=== PATIENT | female | born 1975 | race Caucasian/White ===

== ENCOUNTER 2017-01-06 05:20 | Inpatient (IN) | payer OTHER ==
[~2017-01-06] VITALS: Ht 165.1 cm; Wt 80.3 kg
[~2017-01-06 05:20] MED LIST: CITA10TA14 PO
[2017-01-06] MEDS ORDERED: Lidocaine 2% 5 mL Topical Jelly MUC_MEMBRM ONE (06:00)
[2017-01-06] MEDS ORDERED: Hemorrhage Kit, Post Partum XX ONE ×2 (06:00→10:45)
[2017-01-06] MEDS ORDERED: Carboprost 250 mCg/mL Inj IM PRN ×2 (06:00→10:45)
[2017-01-06] MEDS ORDERED: CeFAZolin Inj 2 GM in IV Premix 1 EACH IV SCH (06:00)
[2017-01-06] MEDS ORDERED: Oxytocin 10 Unit/mL Inj IM PRN ×2 (06:00→10:45)
[2017-01-06] MEDS ORDERED: Methylergonovine 0.2 mg/mL Inj IM PRN ×2 (06:00→10:45)
[2017-01-06] MEDS: Sodium Citrate-Citric Acid 30 mL Solution PO SCH (06:00)
--- NOTE | 2017-01-06 06:50 | PCM.HPOB ---
Subjective Date of Service: Jan 06, 2017 Referring Provider: Admitting Physician: Devon Elder MD Primary Care Physician: Nopcp Attending Physician: Devon Elder MD Chief Complaint Gestational diabetes Non vertex presentation History of Present History of Present Illness This is a 41-year-old at 39 weeks and 0 days with a RAMONE 01/13/17 confirmed by 8 week ultrasound consistent with LMP 04/08/16 who presents for a scheduled delivery with BTL. This has been complicated by non-vertex presentation, gestational diabetes and AMA. The patient is O+, varicella immune, rubella immune, RPR nonreactive, HBs antibody negative and HIV nonreactive. GBS swab was negative. OB History: (6), Para (5), Living (5) Obstetrical Complications: Gestational Diabetes Past Medical History Obstetrical History: 1 2 3 4 5 Hx Tobacco Use: Yes Smoking Status: Former Smoker (12 pack years) Hx Alcohol Use: No Hx Substance Use: No Past Family History Living Arrangement: with Family Genetic Screening/Counseling Genetic Screening/Counseling: Negative Review of Systems Constitutional: Y: Change of appitite, Fever Eyes: Resports: Blurred Vision Cardiovascular: Reports: Chest Pain, Edema, SOB while laying flat Respiratory: Reports: SOB with Exertion Gastrointestinal: Reports: Abdominal Pain, Epigastric pain, Nausea, Vomiting Genitourinary: Reports: Change in Frequency, Dysuria Musculoskeletal: Reports: Limitation of Function Neurological: Reports: Confusion Allergy Coded Allergies: No Known Allergies (Unverified Allergy, Unknown, 08/20/14) Exam Vital Signs BP 108/57 Pulse 97 Respiration 20 Temp 37.2 Exam heart tracing baseline 130 Category I with moderate variability Constitutional: Well-developed, Well-nourished, Normal habitus HEENT: Atraumatic Lungs: Clear to Auscultation Heart: Normal S1, Normal S2, Murmur (I/ flow murmur) Fundus Firm Abdomen: Gravid Extremities: Warm, No Edema, Tenderness/Swelling Noted Neurological/Psychiatric: Alert, Oriented X3 Neuro: Normal DTRs, No Clonus noted Labs/Diagnostics Maternal Blood Type: O (positive) Group B Strep Results: Negative Previous with GBS: Unknown Rubella: Immune OB Intrapartum Assessment/Plan Problems: (1) Abnormal presentation Status: Acute ICD Code: O32.9XX0 (2) 39 weeks gestation of Plan: - Scheduled delivery for breech presentation - Continue routine preop care. Status: Acute ICD Code: Z3A.39 Evi Patterson DO Jan 06, 2017 06:50
[2017-01-06 06:52] LABS: Mean Corpuscular Hemoglobin 34.1 pg (27.0-35.0); Mean Corpuscular Volume 100.6 fL (81-100)
[2017-01-06] MEDS: Lactated Ringer's 1,000 ML IV SCH ×5 (08:35→20:07)
[2017-01-06] MEDS ORDERED: Sodium Citrate-Citric Acid 15 mL Solution ONE (08:43)
[2017-01-06] MEDS ORDERED: Morphine PF 1 mg/mL 10 mL Inj ONE (09:23)
[2017-01-06] MEDS ORDERED: fentaNYL-PF 50 mCg/mL 2 mL Inj ONE (09:51)
[2017-01-06] MEDS ORDERED: Propofol 10,000 mCg/mL 20 mL Inj ONE (09:51)
[2017-01-06] MEDS ORDERED: Oxytocin 10 Unit/mL Inj ONE (09:51)
[2017-01-06] MEDS ORDERED: Ondansetron 2 mg/mL 2 mL Inj ONE (09:51)
[2017-01-06] MEDS ORDERED: Dexamethasone 4 mg/mL Inj ONE (09:51)
--- NOTE | 2017-01-06 10:01 | PCM.HPANE ---
Patient Data Surgeon Admitting Provider:Devon Elder MD Attending Provider:Devon Elder MD Primary Care Physician:Fide Other Provider:Leeann Torres Anesthesia Reason for Visit Breech Presentation, Gestational Diabetes BREECH PRESENTATION, GESTATIONAL DIABETES Ht/WT & BMI Body Mass Index Allergies Coded Allergies: No Known Allergies (Unverified Allergy, Unknown, 08/20/14) Past Anesthesia History Anesthesia History: Denies:: Abnormal Airway Medications Reported Medications Citalopram Hydrobromide (Celexa)10 Mg [id number] Mg PO DAILY DEPRESSION Ref 0 11/17/14 History History of ENT Problems?: No HEENT History: Denies:: Abnormal Airway Denture Type: None Teeth Condition: Within Normal Limits Hx of Heart Problems?: No Cardiovascular History: Denies:: Cardiac Surgery Hx of Respiratory Problem?: No Respiratory History: Denies:: Asthma Hx Neurologic Problems?: No Hx of GI Problems?: No Hx of Problems?: No Female Hx: Positive for:: Currently Hx Musculoskeletal Problems?: No Hx Surgeries?: Yes Hx Alcohol Use: NoHx Substance Use: No Smoking Status: Former Smoker (12 pack years) Stop/Bang Treated for Sleep Apnea?: No Do You Have a CPAP Machine?: No S-Snoring: Do You Snore Loudly: No T-Tired: feel tired, fatigued: No O-Obsered: Observed not breath: No P-Blood Pressure: treated: No B- Body Mass Index > 35 kg/m2: No A- Age over 50: No N- Neck Large Circumference: No G- Gender Male: No DOYLE Risk Assessment: Low Risk, <3 Yes Risk Assessment Category Category 1A: Patient has history of documented sleep apnea, and HAS NOT received any narcotic, sedative or anesthesia administration during this stay. Category 1B: Patient has history of documented sleep apnea, and HAS received any narcotic , sedative or anesthesia administration during this stay Category 2: Patient has SUSPECTED Obstructive Sleep Apnea, and HAS received any narcotic , sedative or anesthesia administration during this stay. Category 3: Patient has SUSPECTED Obstructive Sleep Apnea and HAS NOT received narcotic, sedative or anesthesia administration during this stay. Category 4: Outpatient in Procedural Areas with known sleep apnea or who screen positive for High Risk via the STOP/BANG questionnaire. Exam Exam General Appearance: Alert, Oriented X3 HEENT/AIRWAY: MP 1 Lungs: Clear to Auscultation Heart: Normal S1, Normal S2, Murmur (I/ flow murmur) Meds/Labs/Diagnostics Admission Meds Current Medications Lactated Ringer's 1,000 ml @ 125 mls/hr Q8H IV Last administered on 01/06/17 08:55; Start 01/06/17 at 06:00; Stop 01/06/17 at 13:59 Cefazolin Sodium/ Dextrose/Premix (Ancef Inj/IV Premix) 50 ml @ 150 mls/hr PREOP IV Last administered on 01/06/17 08:35; Start 01/06/17 at 06:00; Stop at 06:19; Status DC Citric Acid/ Sodium Citrate (Bicitra) 15 ml STK-MED ONCE .ROUTE Last administered on 01/06/17 08:56; Start 01/06/17 at 08:43; Stop 01/06/17 at 08:45 ; Status DC Labs Test 01/06/17 06:15 White Blood Count 10.7th/mm3 (3.8-10.1) Red Blood Count 3.55mil/mm3 (3.90-5.20) Hemoglobin 12.1g/dL (12.0-15.6) Hematocrit 35.7% (35.0-46.0) Mean Corpuscular Volume 100.6fL (81-100) Mean Corpuscular Hemoglobin 34.1pg (27.0-35.0) Mean Corpuscular Hemoglobin Concent 33.9% (32.0-37.0) Red Cell Distribution Width 13.9% (12.3-15.4) Platelet Count 352bil/L (150-400) Plan Impression Patient chart reviewed, patient interviewed and anesthestic plan with risks, benefits, and alternatives discussed, and informed consent obtained. NPO per Anesth. Guidelines: Yes ASA Physical Status: ASA1 Normal Healthy Anesthetic Plan: SAB Bene/Risks/Altern/Consents: Yes HP Complete Prior to Induction: Yes Bradly Dasilva MD Jan 06, 2017 10:01
[2017-01-06] MEDS ORDERED: EPHEDrine Sulfate 50 mg/mL Inj IVPUSH PRN (10:05)
[2017-01-06] MEDS ORDERED: Atropine 0.4 mg/mL Inj IV PRN (10:05)
[2017-01-06] MEDS ORDERED: fentaNYL-PF 50 mCg/mL 2 mL Inj IVPUSH PRN (10:05)
[2017-01-06] MEDS ORDERED: Sodium Chloride LOK Flush 10 mL Syringe IVFLUSH PRN (10:45)
[2017-01-06] MEDS ORDERED: Oxytocin 30 Units/500 mL LR 30 UNITS in IV Premix 1 EACH IV PRN (10:45)
[2017-01-06] MEDS ORDERED: hydrOXYzine Pamoate 25 mg Capsule PO PRN (10:45)
[2017-01-06] MEDS ORDERED: LANOlin HPA 7 Gm Ointment TOPICAL PRN (10:45)
--- NOTE | 2017-01-06 12:04 | OP ---
[address] [address] OPERATIVE REPORT PATIENT: LAKEISHA CENTENO : 1975 MR#: [id number] ADMIT: 01/06/2017 JOB ID: [id number] DATE OF SURGERY: 01/06/2017 PREOPERATIVE DIAGNOSIS(ES): 1. Breech presentation. 2. Thirty-nine weeks. 3. Desires permanent sterilization. 4. Advanced maternal age. POSTOPERATIVE DIAGNOSIS(ES): 1. Breech presentation. 2. Thirty-nine weeks. 3. Desires permanent sterilization. 4. Advanced maternal age. PROCEDURE PERFORMED: Primary low transverse delivery with bilateral tubal ligation using salpingectomy. SURGEON: Devon Elder MD. TRANSMISSION OPERATOR: MD Dr. Bren Tavarez was necessary for this procedure to help with exposure and delivery of . ANESTHESIA: Spinal. ESTIMATED BLOOD LOSS: 600 mL. COMPLICATIONS: None. PATHOLOGY SENT: Left and right fallopian tubes. FINDINGS: At time of surgery a male infant in a cephalic presentation with an weight of 3546 g Apgars of 9 and 9. The left fallopian tube had some filmy adhesions along the fimbriated end to the left ovary. Otherwise normal appearing ovaries, uterus, and fallopian tubes. PROCEDURE: Patient was taken to the operating room, where spinal anesthesia was found be adequate. She was placed in a lithotomy position in a leftward tilt and prepared and draped in the normal sterile fashion. A Pfannenstiel incision was made with a scalpel. This incision was carried down to the underlying fascia with the Bovie cautery. The fascia was nicked in the midline and this incision was extended laterally with the Osuna scissors. The underlying rectus muscle was dissected off with blunt and sharp dissection. The rectus muscles were in the midline and perineum entered bluntly with surgeon's hands. This opening was extended with the surgeon's hands. The lower uterine segment was identified. The bladder flap was created, and the uterus incised in low transverse fashion with the scalpel. was delivered in a breech presentation and standard breech maneuvers were used to deliver the infant without difficulty. The cord was clamped after 1 minute and the infant handed off to the waiting nurses. Cord blood was sent. The placenta was removed manually. The uterus was then exteriorized, cleared of all clots and debris. The uterine incision was repaired in two layers with 0-Vicryl suture. A bilateral tubal ligation was performed using bilateral salpingectomy. The right fallopian tube was identified, followed out to the fimbriated end a defect was made in the mesosalpinx and the right fallopian tube was suture ligated at the cornu and just below the fimbriated end. Any vessels in the mesosalpinx were ligated with 0-chromic suture. The tube was excised and sent to Pathology. In a similar fashion, the left fallopian tube was identified. The Bovie cautery was used at this point to free up some filmy adhesions and again in similar fashion. Defects were made in the mesosalpinx and the fallopian tube was suture ligated at its attachment at the cornu and at the fimbriated end and the underlying vessels were then ligated with 0-chromic and the fallopian tube excised and sent to Pathology. Good hemostasis was assured. The gutters were then irrigated with copious amounts normal saline and the uterus returned to the patient's peritoneal cavity. The uterine incision was inspected a second time and noted to be hemostatic. The fascia was then reapproximated with 0-Vicryl suture in a running fashion. Two sutures were used and anchored at each apices and tied separately in the midline. The subcutaneous layer was closed with 0 plain gut. Skin was closed with 4-0 Monocryl in a subcuticular fashion. Dermabond and Steri-Strips applied. All lap, instrument, and needle counts correct x2 at end of procedure. Patient was taken to her room in good condition. DELFINO
[2017-01-06] MEDS: Acetaminophen IV 1,000 MG in IV Premix 1 EACH IV PRN ×2 (12:22→18:14)
[2017-01-07] MEDS: HYDROcodone-APAP 5-325 mg Tablet PO PRN ×6 (01:08→23:09)
[2017-01-07] MEDS: Lactated Ringer's 1,000 ML IV SCH ×2 (04:23→18:41)
[2017-01-07] MEDS: Sodium Citrate-Citric Acid 30 mL Solution PO SCH (06:00)
[2017-01-07 07:25] LABS: Mean Corpuscular Hemoglobin 34.3 pg (27.0-35.0); Mean Corpuscular Volume 102.6 fL (81-100)
--- NOTE | 2017-01-07 09:14 | PCM.PNOBPP ---
Subjective Date of Service Jan 07, 2017 Post : Primary C[facility]re[facility] Delivery Visit History Postop day 1 Primary delivery Subjective Patient has no complaints. She is feeling ready to leave today and disappointed when informed we retain patients for 48 hours post- delivery. She is breast-feeding well, tolerating oral feedings and ambulating and independently. Lochia: Light Pain Management: PO pain meds Gastrointestinal: Good Appetite, No N/V Postop Activity: Ambulating Independently Group B Strep Results: Negative Rubella: Immune Blood Type: O (positive) Labs Laboratory Tests 01/07/17 06:50: White Blood Count 13.1, Red Blood Count 3.09, Hemoglobin 10.6, Hematocrit 31.7, Mean Corpuscular Volume 102.6, Mean Corpuscular Hemoglobin 34.3, Mean Corpuscular Hemoglobin Concent 33.4, Red Cell Distribution Width 13.7, Platelet Count 343 Exam Vital Signs Vital Signs BP 99/51 p 78 rr 21 temp 36.6 Exam Abdomen: Fundus firm Extremities: No cords, No edema Lungs: Clear to Auscultation Heart: Regular Rate/Rhythm, Normal S1, Normal S2 General: Alert, Oriented X3 Additional Information Incision is well approximated with no erythema or induration noted. It is also clean and dry. OB Post Assessment/Plan Problems: (1) Abnormal presentation Qualifiers: malpresentation type: breech Status: Acute ICD Code: O32.9XX0 (2) 39 weeks gestation of Plan: - Continue routine care. - Anticipate discharge tomorrow a.m. Status: Acute ICD Code: Z3A.39 Pain Evaluation: Adequate Pain Control Post plan: Continue routine post care, Discharge home tomorrow Attending Statement I saw patient and examined her. I agree with above plan. Evi Patterson DO Jan 07, 2017 09:14 Bren Rodrigues MD Jan 09, 2017 14:33
[2017-01-08] MEDS: Lactated Ringer's 1,000 ML IV SCH ×2 (02:41→10:41)
[2017-01-08] MEDS: HYDROcodone-APAP 5-325 mg Tablet PO PRN ×3 (03:00→13:57)
[2017-01-08] MEDS: Sodium Citrate-Citric Acid 30 mL Solution PO SCH (06:00)
--- NOTE | 2017-01-08 14:37 | PCM.DIMED ---
Discharge Instructions Date of Service Jan 08, 2017 Dates of Hospitalization Jan 06, 2017 at 05:20 Diet Discharge Diet: No restrictions Activity Discharge Activity: No restrictions Call your provider Call your provider for: Fever or Chills, Shortness of breath, Bleeding, Chest pain, Vomitting, Excessive diarrhea, Weakness (unilateral) Patient Instructions Follow-up with PCP in: 2 weeks Estuardo Aguillon MD Jan 08, 2017 14:37
[2017-01-08] MEDS ORDERED: DOCU-41 PO (14:39)
[2017-01-08] MEDS ORDERED: HYDR-4003 PO (14:39)
[2017-01-08] MEDS ORDERED: IBUP-1827 PO (14:39)
[2017-01-08 15:00] VITALS: BP 108/66; PULSE 77; RESP 18
--- NOTE | 2017-01-08 15:04 | DIS ---
[address] [address] DISCHARGE SUMMARY PATIENT: LAKEISHA CENTENO : 1975 MR#: [id number] ADMIT: 01/06/2017 JOB ID: [id number] DIS: 01/08/2017 ADMITTING DIAGNOSIS(ES): 1. Intrauterine , 39 weeks. 2. Advanced maternal age. 3. Breech presentation. 4. Desires permanent sterilization. DISCHARGE DIAGNOSIS(ES): 1. Intrauterine , 39 weeks. 2. Advanced maternal age. 3. Breech presentation. 4. Desires permanent sterilization. 5. Status post primary low transverse delivery with bilateral tubal ligation. The patient is a 41-year-old 6, para 6 now with estimated delivery date was January 13, 2017, presented to Labor and Delivery for delivery at 39 weeks because of breech presentation, gestational diabetes and advanced maternal age. The delivery went uncomplicated. Delivered a male with weight 3546 g and scores 9 at one minute and 9 at five minutes. The patient also consented for bilateral tubal ligation that was done. The surgery went uncomplicated with estimated blood loss of 600 mL. On day one, January 07, 2017, the patient was doing well, was afebrile. Vital signs were stable. She was ambulating, trying to breast feed, the dressing was removed and incision was dry, clean, intact. The Steri-Strips were clear. She has not had any vaginal bleeding. No abnormal vaginal discharge. On postoperative day two, January 08, 2017, the patient was ambulating and breast-feeding well, tolerating regular food. The pain was controlled with ibuprofen and breakthrough pain was addressed with hydrocodone. The patient was afebrile. On examination, the uterine fundus was firm. The incision was dry, clean and intact. The abdomen was soft and nondistended. The patient has not had any complaints and she was discharged home on January 08, 2017 post operative day two with all discharge criteria met. She received discharge medications includin. Hydrocodone with acetaminophen 5/325 mg 1-2 tablets p.o. 4x daily p.r.n. for breakthrough pain. 2. Ibuprofen 600 mg p.o. q.6 hours p.r.n. for pain. 3. Colace 100 mg p.o. t.i.d. p.r.n. Follow up visit in the clinic is scheduled in two weeks.
--- NOTE | 2017-01-10 11:04 | PATH ---
SURGICAL PATHOLOGY Attending Physician:Devon Elder, CASE STATUS: Signed Out PATIENT NAME: LAKEISHA CENTENO PID: [id number] : 1975 DATE COLLECTED:01/06/2017 00:00 SPECIMEN: 1: Fallopian Tube, Sterilization 2: Fallopian Tube, Sterilization CLINICAL HISTORY: 1). LEFT FALLOPIAN TUBE 2). RIGHT FALLOPIAN TUBE FINAL DIAGNOSIS: 1. Left Fallopian Tube: Segment of fallopian tube with no pathologic alterations. 2. Right Fallopian Tube: Segment of fallopian tube with no pathologic alterations. ICD10: Z30.2 GROSS DESCRIPTION: The specimens are received unfixed, labeled with the patient's name, and sublabeled as the following: (1) L fallopian segment; (2) R fallopian tube. (1) The specimen consists of a fimbriated segment of fallopian tube (length-3.8, diameter-0.5 cm). The serosa is irwin-pink smooth and shiny. The lumen is irwin and unremarkable. Section code: (1A) fallopian tube segment, serially sectioned, sales representative metals; (1B) fimbria, bivalved, entirely submitted. (2) The specimen consists of a non-fimbriated segment of fallopian tube (length-4.1, diameter-0.6 cm). The serosa is irwin-pink smooth and shiny. The lumen is irwin and unremarkable. Section code: (2A) fallopian tube segment, serially sectioned, sales representative metals. 01/07/17 JM MICRO DESCRIPTION: Please see diagnosis. ICD-9 CODES: CPT CODES: 1: 88414 2: 96062 Electronically Signed Out Meagan Cope MD [facility] [address], [place] [address] Technical component performed at [facility], [facility] [address], [place], [address]
== END 2017-01-08 15:37 | disposition home or self-care (01) | DRG 766 ==
LOC: FBC 05:20 → EDSTATUS 07:15
PROVIDERS: ADMIT Obstetrics & Gynecology; ATTEND Obstetrics & Gynecology
PROC: 0UT70ZZ Resection of Bilateral Fallopian Tubes, Open Approach (ICD-10-PCS; 2017-01-06)
PROC: 10D00Z1 Extraction of Products of Conception, Low, Open Approach (ICD-10-PCS; principal; 2017-01-06 07:15)
DX: O32.8XX0 Maternal care for other malpresentation of fetus, not applicable or unspecified (principal); O24.420 Gestational diabetes mellitus in childbirth, diet controlled; Z30.2 Encounter for sterilization; Z3A.39 39 weeks gestation of pregnancy; Z37.0 Single live birth